=== PATIENT | male | born 1965 | race Caucasian/White ===

== ENCOUNTER → 2023-07-03 17:23 | Outpatient (REF) | payer OTHER, SELFPAY | LOC: HWRAD 17:23 | PROVIDERS: ATTENDING PHYSICIAN Podiatrist Foot & Ankle Surgery; FAMILY PHYSICIAN Family Medicine | DX: M79.672 Pain in left foot (principal) | CPT/HCPCS: 73630 ==

== ENCOUNTER → 2024-07-04 14:31 | Outpatient (REF) | payer OTHER, SELFPAY | LOC: RCS 14:31 | PROVIDERS: ATTENDING PHYSICIAN Family Medicine | DX: R94.31 Abnormal electrocardiogram [ECG] [EKG] (principal); I51.7 Cardiomegaly | CPT/HCPCS: 93306 ==

== ENCOUNTER 2024-12-06 23:51 | Emergency (ER) | payer OTHER, SELFPAY ==
[2024-12-07 00:07] VITALS: BP 123/86
[2024-12-07 00:46] LABS: Hematocrit 43.0 % (39.0-52.0); Hemoglobin 14.8 g/dL (13.0-18.0); Mean Corp Hgb Conc. 34.4 g/dL (33.0-37.0); Mean Corpuscular Volume 88.1 fL (80.0-94.0); Nucleated Red Blood Cells % 0 % (-); Platelet Count 274 10^3/uL (130-400); Red Cell Dist. Width 12.7 % (11.5-14.5)
[2024-12-07 00:50] LABS: ALT (SGPT) 28 U/L (0-50); AST (SGOT) 26 U/L (17-59); Albumin 4.7 g/dl (3.5-5.0); Alkaline Phosphatase 78 U/L (38-126); Blood Urea Nitrogen 26 mg/dl (9-20); Calcium 9.4 mg/dl (8.4-10.2); Carbon Dioxide 24 mmol/L (22-30); Chloride 109 mmol/L (98-107); Glucose 82 mg/dl (70-99); Potassium 4.1 mmol/L (3.5-5.1); Sodium 142 mmol/L (135-145); Total Protein 7.2 g/dl (6.3-8.2); eGFR > 60.00
[2024-12-07 01:01] LABS: Troponin I < 0.012 ng/ml
[2024-12-07 01:54] VITALS: BMI 29.5
[2024-12-07 01:56] VITALS: BP 135/90
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
== END 2024-12-07 02:05 | disposition home or self-care (01) ==
LOC: EMR 23:51
PROVIDERS: Emergency Medicine; EMERGENCY PHYSICIAN Emergency Medicine
DX: R00.0 Tachycardia, unspecified (principal)
CPT/HCPCS: 99284; 80053; 84484; 85025; 93005

== ENCOUNTER → 2025-03-03 14:21 | Outpatient (REF) | payer OTHER, SELFPAY | LOC: DHSLP 14:21 | PROVIDERS: ATTENDING PHYSICIAN Internal Medicine Cardiovascular Disease; FAMILY PHYSICIAN Family Medicine | DX: G47.30 Sleep apnea, unspecified (principal); R06.83 Snoring | CPT/HCPCS: 95800 ==

== ENCOUNTER 2025-05-13 09:10 | Day surgery (SDC) | payer OTHER, SELFPAY | END 2025-05-13 09:40 | disposition home or self-care (01) | LOC: CATH 09:10 | PROVIDERS: ATTENDING PHYSICIAN Internal Medicine Cardiovascular Disease; FAMILY PHYSICIAN Family Medicine; OTHER PHYSICIAN Internal Medicine Cardiovascular Disease | DX: R94.31 Abnormal electrocardiogram [ECG] [EKG] (principal); Z53.9 Procedure and treatment not carried out, unspecified reason | CPT/HCPCS: 93005 ==